=== PATIENT | female | born 1980 | race African-American/Black ===

== ENCOUNTER 2016-10-19 14:27 | Emergency (ER) | payer OTHER ==
[~2016-10-19] VITALS: Ht 167.6 cm; Wt 79.4 kg
[2016-10-19] MEDS ORDERED: hydrALAZINE HCL IV 20 MG VIAL ONE ×2 (16:09→16:49)
[2016-10-19] MEDS ORDERED: hydrALAZINE HCL IV 20 MG VIAL IV ONE ×2 (16:30→17:30)
--- NOTE | 2016-10-19 16:52 | NUR ---
10MG ADMINISTERED HYDRALAZINE IV PER DR. JAKOB PHAM
--- NOTE | 2016-10-19 17:13 | NUR ---
PATIENT'S BLOOD PRESSURE TRENDING DOWN. PATIENT REMAINS STABLE. A/OX 4. CLEAR FOR OKAY TO BOOK PER DR. ROBERT
[2016-10-19] MEDS ORDERED: AMLODIPINE BESYLATE 5 MG TABLET ONE (17:19)
[2016-10-19] MEDS ORDERED: AMLODIPINE BESYLATE 5 MG TABLET PO ONE (17:30)
[2016-10-19 17:47] VITALS: BP 162/109
== END 2016-10-19 17:48 | disposition home or self-care (01) ==
LOC: ER 14:32
DX: I10 Essential (primary) hypertension (principal); M79.7 Fibromyalgia; F17.210 Nicotine dependence, cigarettes, uncomplicated
CPT/HCPCS: 96374; 99284; A4606; J0360 ×2; Z7610